=== PATIENT | male | born 1965 | race Asian ===

== ENCOUNTER 2020-05-06 13:35 | Emergency (ER) | payer SELFPAY ==
[~2020-05-06] VITALS: Ht 167.6 cm; Wt 74.4 kg
[2020-05-06 13:48] VITALS: BP 125/102; Ht 167.6 cm; Wt 74.4 kg
== END 2020-05-06 16:38 | disposition home or self-care (01) ==
LOC: ED 13:35
DX: S61.101A Unspecified open wound of right thumb with damage to nail, initial encounter (principal); W22.8XXA Striking against or struck by other objects, initial encounter; Y93.89 Activity, other specified; Y92.89 Other specified places as the place of occurrence of the external cause; Y99.8 Other external cause status
CPT/HCPCS: 90715